=== PATIENT | male | born 1945 | race Caucasian/White ===

== ENCOUNTER 2022-11-18 09:50 | Observation (INO) ==
--- NOTE | 2022-10-18 11:34 | PAT Medication Instructions ---
Medication Instructions Date of Service October 18, 2022 Home Medications Medication Instructions Recorded furosemide 40 mg tablet 40 mg PO DAILY PRN edema #30 tabs 02/11/18 potassium chloride 20 mEq 20 meq PO DAILY PRN take with 02/11/18 tablet,extended release furosemide #30 tabs nebulizers #1 ea 02/24/21 Oxygen Home #1 ea 03/29/21 oxycodone 5 mg tablet 5 mg PO Q6H PRN pain #20 tabs 05/20/22 ascorbic acid (vitamin C) 500 mg capsule,extended release (Vitamin C) 500 mg PO QAM garlic 1,000 mg capsule 1,000 mg PO QAM glucosamine sulfate 1,000 mg capsule 1,000 mg PO BID pravastatin 40 mg tablet 40 mg PO HS selenium 200 mcg capsule 200 mcg PO QAM trazodone 50 mg tablet 50 mg PO HS verapamil 240 mg tablet,extended release 120 mg PO Q12H furosemide 40 mg tablet 40 mg PO DAILY PRN potassium chloride 20 mEq tablet,extended release 20 meq PO DAILY PRN aspirin 81 mg tablet,delayed release (Aspir-) 81 mg PO QPM triamcinolone acetonide 0.1 % topical cream 1 appln topical DAILY PRN ibuprofen 200 mg tablet (Advil) 400 mg PO QAM psyllium [Metamucil (sugar)] 1 dose PO QAM oxycodone 5 mg tablet 5 mg PO Q6H PRN melatonin 5 mg tablet 5 mg PO HS PRN baclofen 10 mg tablet 10 mg PO BID cholecalciferol (vitamin D3) 25 mcg (1,000 unit) tablet (Vitamin D3) 25 mcg PO BID escitalopram oxalate 20 mg tablet 20 mg PO HS fluticasone fur. 200 mcg-umeclid 62.5 mcg-vilant 25 mcg inhalat.powder (Trelegy Ellipta) 1 inh inhalation QAM ipratropium 0.5 mg-albuterol 3 mg (2.5 mg base)/3 mL nebulization soln 3 ml inhalation Q4H PRN omeprazole 20 mg tablet,delayed release 20 mg PO QPM tamsulosin 0.4 mg capsule 0.4 mg PO HS ASK your surgeon for instructions ibuprofen 200 mg tablet (Advil) 400 mg PO QAM STOP taking 2 weeks before surgery (or as soon as possible if surgery is within 2 weeks) garlic 1,000 mg capsule 1,000 mg PO QAM glucosamine sulfate 1,000 mg capsule 1,000 mg PO BID selenium 200 mcg capsule 200 mcg PO QAM STOP taking 24 hours before surgery triamcinolone acetonide 0.1 % topical cream 1 appln topical DAILY PRN DO NOT take the morning of surgery ascorbic acid (vitamin C) 500 mg capsule,extended release (Vitamin C) 500 mg PO QAM furosemide 40 mg tablet 40 mg PO DAILY PRN potassium chloride 20 mEq tablet,extended release 20 meq PO DAILY PRN psyllium [Metamucil (sugar)] 1 dose PO QAM baclofen 10 mg tablet 10 mg PO BID cholecalciferol (vitamin D3) 25 mcg (1,000 unit) tablet (Vitamin D3) 25 mcg PO BID Take morning of surgery With a small sip of water, OTHERWISE NOTHING TO EAT OR DRINK AFTER MIDNIGHT: verapamil 240 mg tablet,extended release 120 mg PO Q12H oxycodone 5 mg tablet 5 mg PO Q6H PRN(if needed) fluticasone fur. 200 mcg-umeclid 62.5 mcg-vilant 25 mcg inhalat.powder (Trelegy Ellipta) 1 inh inhalation QAM ipratropium 0.5 mg-albuterol 3 mg (2.5 mg base)/3 mL nebulization soln 3 ml inhalation Q4H PRN(if needed) Take evening before surgery pravastatin 40 mg tablet 40 mg PO HS trazodone 50 mg tablet 50 mg PO HS verapamil 240 mg tablet,extended release 120 mg PO Q12H aspirin 81 mg tablet,delayed release (Aspir-) 81 mg PO QPM (unless directed otherwise by surgeon) oxycodone 5 mg tablet 5 mg PO Q6H PRN(if needed) melatonin 5 mg tablet 5 mg PO HS PRN(if needed) baclofen 10 mg tablet 10 mg PO BID cholecalciferol (vitamin D3) 25 mcg (1,000 unit) tablet (Vitamin D3) 25 mcg PO BID escitalopram oxalate 20 mg tablet 20 mg PO HS ipratropium 0.5 mg-albuterol 3 mg (2.5 mg base)/3 mL nebulization soln 3 ml inhalation Q4H PRN(if needed) omeprazole 20 mg tablet,delayed release 20 mg PO QPM tamsulosin 0.4 mg capsule 0.4 mg PO HS Other Notes If you have any questions please call us at [phone] or [phone] or [phone] or [phone]
--- NOTE | 2022-10-25 12:54 | Anesthesiology Consultation ---
Date of Service October 25, 2022 Assessment & Plan (1) Encounter for pre-operative examination: Chart Review Chart Review: Acceptable Risk for Surgery and Patient seen in Pre Admission Testing - Due to PMH and age- patient is NOT an OPJ candidate (scheduled as 23 hr obs) Per PAT appt on 10/25/22, patient denies any recent travel or large group activities. Pt is vaccinated for Covid. Will leave to surgeon's discretion if preop Covid testing needed. Educated on importance of using Covid precautions one week prior to surgery Pt seen by pulm 09/08/22= Patient with history of COPD/asthma. [id number] smoking historyquit 3 years ago. History of lung cancer. Sleep apnea/atrial tachycardiapresenting for follow-up evaluation. Patient is undergoing preoperative clearance for knee replacement surgery. Latest pulmonary function testing showing FEF1 1.9 L at 69% of predicted. Patient denies recent hospitalization, emergency room visits or urgent care visits. Patient is cleared for surgical intervention/TKR, with moderate likelihood for perioperative cardiopulmonary complications. Benefit for surgery outweighs the inherent risk at this point. Postoperative pulmonary medicine consultation is recommended. (Surgeon's office made aware) Robotic right VATS, right lower lobectomy 01/31/18= Done under [facility] with Grade 2 view with Naidu #2. Fiberoptic awake placement. Endobronchial tube. MAC 3 x 1. MAC 4 x 1. Naidu 2 x 2 Teaching & Discussion Pre-Anesthesia Teaching/Discussion Notes: Instructed NPO after midnight before surgery,except medications with 15 cc of water. Medication instructions provided according to the PAT guidelines. History Surgery Operation Date: 11/18/22 09:20 Proposed Procedures p Right Total Knee Arthroplasty - Pastor Lisa, Height/Weight Height: 5 ft 8 in Weight: 116.6 kg Allergies Allergy/AdvReac Type Severity Reaction Status Date / Time No Known Allergies Allergy Mild Verified 10/13/22 14:36 Medications Home Medications Medication Instructions Recorded Confirmed Last Taken ascorbic acid (vitamin C) 500 mg 500 mg PO QAM 01/26/18 10/13/22 02/06/18 capsule,extended release (Vitamin C) garlic 1,000 mg capsule 1,000 mg PO QAM 01/26/18 10/13/22 02/06/18 glucosamine sulfate 1,000 mg 1,000 mg PO BID 01/26/18 10/13/2202/06/18 capsule pravastatin 40 mg tablet 40 mg PO HS 01/26/18 10/13/22 02/06/18 selenium 200 mcg capsule 200 mcg PO QAM 01/26/18 10/13/22 02/06/18 trazodone 50 mg tablet 50 mg PO HS 01/26/18 10/13/22 01/30/18 22:00 verapamil 240 mg tablet,extended 120 mg PO Q12H 01/26/18 10/13/22 02/06/18 release furosemide 40 mg tablet 40 mg PO DAILY PRN edema #30 tabs 02/11/18 10/13/22 Unknown potassium chloride 20 mEq 20 meq PO DAILY PRN take with 02/11/18 10/13/22 Unknown tablet,extended release furosemide #30 tabs aspirin 81 mg tablet,delayed 81 mg PO QPM 03/19/18 10/13/22 Unknown release (Aspir-) triamcinolone acetonide 0.1 % 1 appln topical DAILY PRN flare 10/15/19 10/13/22 Unknown topical cream ibuprofen 200 mg tablet (Advil) 400 mg PO QAM 12/25/20 10/13/22 Unknown nebulizers #1 ea 02/24/21 10/11/22 Unknown Oxygen Home #1 ea 03/29/21 10/11/22 Unknown psyllium [Metamucil (sugar)] 1 dose PO QAM 11/05/21 10/13/22 Unknown oxycodone 5 mg tablet 5 mg PO Q6H PRN pain #20 tabs 05/20/22 10/13/22 Unknown melatonin 5 mg tablet 5 mg PO HS PRN Sleep 10/11/22 10/13/22 Unknown baclofen 10 mg tablet 10 mg PO BID 10/13/22 10/13/22 Unknown cholecalciferol (vitamin D3) 25 25 mcg PO BID 10/13/22 10/13/22 Unknown mcg (1,000 unit) tablet (Vitamin D3) escitalopram oxalate 20 mg tablet 20 mg PO HS 10/13/22 10/13/22 Unknown fluticasone fur. 200 mcg-umeclid 1 inh inhalation QAM 10/13/22 10/13/22 Unknown 62.5 mcg-vilant 25 mcg inhalat.powder (Trelegy Ellipta) ipratropium 0.5 mg-albuterol 3 mg 3 ml inhalation Q4H PRN sob 10/13/22 10/13/22 Unknown (2.5 mg base)/3 mL nebulization soln omeprazole 20 mg tablet,delayed 20 mg PO QPM 10/13/22 10/13/22 Unknown release tamsulosin 0.4 mg capsule 0.4 mg PO HS 10/13/22 10/13/22 Unknown Past Medical History Medical History ASCVD (arteriosclerotic cardiovascular disease) On ASA per PCP records COPD (chronic obstructive pulmonary disease) Breathing stable at [facility] appt 10/25/22- symptoms fluctuate (possibly weather dependent) Depression GERD (gastroesophageal reflux disease) Well controlled and stable with Omeprazole and Tums History of lung cancer dx'd 2017. s/p right lobectomy no chemo/XRT- stable History of typhoid fever at age 9 Hyperlipidemia Hypertension Insomnia On home O2 2 lpm qHS. Paroxysmal atrial tachycardia with intermittent PVCs- takes Verapamil Prediabetes Hgb A1C 6.1 on 09/21/22 PVD (peripheral vascular disease) Sleep apnea recently dx'd. waiting on device. Spinal stenosis Exercise / Class Metabolic Activity III < 4 Walking/Shop/Light housework (no chest pain, mild SOB (occ) with short distance, flat surface ambulation ) Past Family History Family History Mother , age 84 of lung cancer Lung cancer Father , age 79 of heart disease Heart disease COPD (chronic obstructive pulmonary disease) Other Diabetes Stroke Past Surgical History Surgical History H/O vasectomy History of lobectomy of lung RLL History of tonsillectomy Hx of cataract surgery BL Hx of colonoscopy Past Anesthesia History No Hx of Anesthesia Complications and No Family Hx of Anesthesia Complications History of PONV No Hx of PONV and No Hx of Motion Sickness Social History Smoking Status: Former smoker tobacco type: cigarettes Do You Dip or Chew Tobacco: No Smoking End Date: 3.5 years ago Hx Alcohol Use: Yes Alcohol type: hard liquor alcohol intake frequency: 0-2 drinks per day Alcohol Intake Frequency Comment: 2 drinks per night Hx Substance Use: No substance use type: does not use Review of Systems Patient denies chest pain, shortness of breath at rest, cough, wheezing, palpitations. No hx of seizures, stroke, NV. No hx of blood clots or blood transfusions Physical Exam Vital Signs VITALS BP 113/76 P 66 TEMP 97.7 SP02 95% on RA RESP 16 Constitutional no acute distress ENMT Mouth: no TMJ clicking Thyromental Distance: > or= 3.5 Finger Breadths (4.0) Mallampati Class: III Crowns to side teeth and molars Neck + limited neck extension (significant ) Respiratory normal respiratory effort; no respiratory distress Auscultation: lungs clear to auscultation bilaterally and + diminished lung sounds (mildly throughout ); no wheezes Cardiovascular Rate/Rhythm: regular rate and regular rhythm Heart Sounds: no murmur Vessels: no carotid bruit Musculoskeletal Spine: + pain with cervical ROM Extremities: extremities normal to inspection Psychiatric Orientation: alert Lab Results Anesthesia Preop Results Results Anesthesia Widget: WBC 8.93 K/ul (4.8-10.8) 10/25/22 Hgb 14.7 g/dl (14.0-18.0) 10/25/22 Hct 42.3 % (42.0-52.0) 10/25/22 Plt 175 K/uL (130-400) 10/25/22 Na 139 mmol/L (136-145) 10/25/22 K 4.1 mmol/L (3.5-5.1) 10/25/22 Cl 105 mmol/L (98-107) 10/25/22 CO2 27 mmol/L (21-32) 10/25/22 BUN 24 mg/dl (6-23) H 10/25/22 Creat 0.84 mg/dl (0.6-1.4) 10/25/22 Glucose Level 106 mg/dl (70-99(Fasting)) H 10/25/22 PT 10.5 Seconds (9.0-12.0) 10/25/22 PTT 24.3 Seconds (21.0-31.0) 10/25/22 INR 1.0 (0.9-1.1) 10/25/22 Blood Type A Negative 10/25/22 Antibody Screen NEGATIVE 10/25/22 Testing Electrocardiogram Date: 10/25/22 SR with PACs at 70bpm Otherwise normal EKG per cardio Chest X-Ray Date: 10/25/22 FINDINGS: There is underlying emphysema. Lung volumes are normal. There is no consolidation to suggest pneumonia. Linear right basilar densities favor atelectasis. There is no pneumothorax or pleural effusion. Mild cardiomegaly is unchanged. Mediastinal contours are normal. There is no evidence for pulmonary edema. IMPRESSION: No acute cardiopulmonary findings. No change in appearance of the chest. Stress Test Date: 07/28/20 Type: nuclear Gated SPECT imaging reveals normal myocardial thickening and wall motion LVEF was calculated at 64% COVID-19 Risk Screen Screening Information COVID-19 Screen Date: 10/25/22 Exposure 21 Days Family/Household +COVID Last 21 Days: No Exposure 10 Days Any COVID Exposure Last 10 Days: No Symptoms Last 10 Days Experienced COVID Sx Last 10 Days: No + COVID 0-90 Days COVID + in Last 0-90 Days: No Risk Plan COVID Risk Plan: No Risk Identified Patient Education COVID Preop Screening Education Complete: Yes
[~2022-11-18 09:50] MED LIST: ACETAMINOPHEN 500 MG TAB PO SCH; BUPIVACAINE 0.5 % 5 MG/1 ML PF 10ML VIAL ONE; FAMOTIDINE 20 MG TAB PO SCH; GABAPENTIN 300 MG CAP PO SCH; LR 500ML BOLUS, THEN 15ML/HR IV SCH; LR 60ML/HR IV SCH; ORTHO JOINT MIX INFIL SCH; ROPIVACAINE 0.5% 5 MG/ML 30 ML VIAL ONE; TRANEXAMIC ACID 1,000 MG **IV Intra-op IV SCH; TRANEXAMIC ACID 1,000 MG **IV Pre-op IV SCH; ceFAZolin 2000MG 2,000 MG/15 ML SYR IV SCH; dexAMETHasone 4 MG TAB PO SCH
[2022-11-18] MEDS ORDERED: PROPOFOL IV EMULSION 10 MG/ML 20 ML VIAL IV ONE ×2 (11:32→13:42)
[2022-11-18] MEDS ORDERED: LIDOCAINE 2% 2 ML VIAL/AMP(20MG/ML) INFIL ONE (11:32)
[2022-11-18] MEDS ORDERED: MIDAZOLAM HCL 1 MG/ML 2ML VIAL ONE ×2 (11:32→12:26)
--- NOTE | 2022-11-18 11:45 | History & Physical Bridge Note ---
Date of Service November 18, 2022 History & Physical Bridge Note I have examined the patient, reviewed the History & Physical and in the interval since the performance of the History & Physical I have noted the following changes of clinical significance: no changes noted
[2022-11-18] MEDS ORDERED: ORTHO JOINT ANESTHETIC ONE (12:37)
--- NOTE | 2022-11-18 14:06 | Operative Report ---
PG Post Operative Report Pre & Post Diagnosis Operation Date: 11/18/22 12:10 Pre-Op Diagnosis: Right Knee Degenerative Joint Disease Post-Op Diagnosis: Right Knee Degenerative Joint Disease I identified the patient and participated in the time-out.: Yes Procedure Operation Date: 11/18/22 12:10 Actual Procedures p Right Total Knee Arthroplasty(Right) - Pastor Lisa DO Surgeon Pastor Lisa DO Phosphoric Acid Operator Pastor Wynn PA-C Estimated Blood Loss 30 Findings Consistent with Post-Op Diagnosis Specimens Right femoral and tibial bone Description of Procedure Implants used: I used a Flora Persona total knee arthroplasty system with a size 11 standard PS femur, G tibia with a 30 mm stem extension, 34 oval patella, and a size 12 CPS polyethylene bearing. All components were cemented in place with Biomet cement. Jay arrived [facility] for the above procedure. He was seen in the preoperative holding area and the operative extremity was identified and signed. He was given a preoperative antibiotic, TXA, a spinal anesthetic and an adductor nerve block. He was taken back to the operating room and laid on the table in supine position. He was given basic sedation. The operative knee was then prepped and draped in sterile fashion. A timeout was done, and the patient and the operative extremity was properly identified. A midline incision was made directly over the patella. Dissection was taken down to the extensor mechanism. A midvastus arthrotomy was used. The medial retinaculum was released and the fat pad was mostly excised. The knee was flexed and the ACL, PCL, and meniscus were removed. A drill was sent down the center of the femoral canal followed by an intramedullary taty. Off that taty a distal femoral cutting block was placed. 9 mm was resected off the distal femur at 5 of valgus. A posterior referencing AP sizing guide was then placed on the distal femur. The femur measured to be a size 11. 2 drill holes were placed in 3 of external rotation. A 4-in-1 cutting block was then impacted into place. Anterior, posterior, and chamfer cuts were then made. The proximal tibia was then exposed. An external tibial alignment guide was placed. A tibial cut guide was then anchored in place and the proximal tibia was then resected. The posterior aspect of the knee was then opened up and any additional meniscus fragments and osteophytes were removed. The tibia measured to be a size G. The tibial plate was then placed in the appropriate rotation and the tibia was drilled and punched. Trial components were then placed. I used a size 12 CPS polyethylene insert. The knee was brought through a full range of motion and felt to be stable. The peg holes for the femoral component were then drilled. The patella was then everted and 9 mm was resected off the posterior aspect of the patella. The patella measured to be a size 34 oval. 3 peg holes were then drilled. A trial patella was placed. The knee was once again brought through a full range of motion and felt to be stable. Trial components were then removed. The surrounding soft tissues were injected with 100 cc of an orthopedic pain control cocktail. All components were then cemented into place with Biomet cement. The final polyethylene insert was then snapped into place. Once cement was dry the tourniquet was deflated. Hemostasis was obtained. A dilute betadyne lavage was then done for 3 minutes. The joint was then irrigated with normal saline solution. The midvastus a rthrotomy was then closed with #1 Vicryl suture. The skin was closed with 2-0 Vicryl, 3-0V lock suture, and ras. A soft compressive dressing was placed. He was then transferred to a hospital bed and taken to the postanesthesia care unit in stable condition. He tolerated the procedure well. Pastor Wynn PA-C, was present for the entire procedure. He was critical for patient positioning, prepping, draping, retraction exposure, wound closure and application of sterile dressing. I attest to the content of the Intraoperative Record and any orders documented therein. Any exceptions are noted below.
[2022-11-18] MEDS ORDERED: PHENYLEPHRINE 100MCG/ML 5ML SYR ONE (14:08)
[2022-11-18] MEDS ORDERED: ePHEDrine sulfate 50 MG/ML AMP IV PRN (14:14)
[2022-11-18] MEDS ORDERED: ATROPINE SULFATE 0.1 MG/ML 10ML SYR IV PRN (14:14)
[2022-11-18] MEDS ORDERED: fentaNYL citrate PF 100 MCG/2 ML VIAL IV PRN (14:14)
--- NOTE | 2022-11-18 14:53 | XRay Report ---
TWO VIEWS RIGHT KNEE CLINICAL HISTORY: Postoperative examination. FINDINGS: AP and crosstable lateral portable views of the right knee are obtained. A right knee arthr oplasty is in near anatomic alignment. There has been undersurface remodeling of the patella. No acut e fracture is seen. There are expected postoperative changes around the knee including skin clips, so ft tissue edema, and subcutaneous gas. IMPRESSION: Expected postoperative changes status post right knee arthroplasty. No acute fracture is seen. ACT 112: Negative or not required by law. Electronically signed by: Baldemar Deleon M.D. 11/18/2022 2:52 PM
--- NOTE | 2022-11-18 15:36 | Anesthesiology Progress Note ---
Date of Service November 18, 2022 Anesthesia Post Procedure Vital Signs Vital Signs: Temp Pulse Resp BP Pulse Ox O2 Del Method O2 Flow Rate 11/18/22 15:30 70 18 125/79 95 Nasal Cannula 3 11/18/22 15:20 72 18 119/69 95 Nasal Cannula 3 11/18/22 15:10 72 18 124/72 96 Nasal Cannula 3 11/18/22 15:00 75 18 117/70 96 Nasal Cannula 3 11/18/22 14:50 82 16 119/74 93 Nasal Cannula 3 11/18/22 14:40 72 18 124/77 96 Oxymask 7 11/18/22 14:30 36.5 C 94 H 18 106/67 96 Oxymask 7 11/18/22 10:33 36.4 C L 68 22 168/99 H 94 Room Air Transfer of Care Handoff Completed per policy Notes Mental Status: alert / awake / arousable and participated in evaluation Patient Amnestic to Procedure: Yes Nausea / Vomiting: adequately controlled Pain: adequately controlled Airway Patency, RR, SpO2: stable & adequate BP & HR: stable & adequate Hydration State: stable & adequate Anesthetic Complications: no major complications apparent
[2022-11-18] MEDS ORDERED: METOCLOPRAMIDE HCL INJ 5 MG/ML 2 ML VIAL IV PRN (16:01)
[2022-11-18] MEDS ORDERED: MAGNESIUM HYDROXIDE SUSP 30 ML UDC PO PRN (16:01)
[2022-11-18] MEDS ORDERED: NALOXONE HCL 0.4 MG/1 ML VIAL/CARP IV PRN (16:01)
[2022-11-18] MEDS ORDERED: ONDANSETRON INJ 2 MG/ML 2 ML VIAL IV PRN (16:01)
[2022-11-18] MEDS ORDERED: bisacodyL 10 MG SUPP PR PRN (16:01)
[2022-11-18] MEDS ORDERED: ALBUT/IPRATROP 3MG/0.5MG NEB 3 ML VIAL INH PRN (16:01)
[2022-11-18] MEDS ORDERED: TRIAMCINOLONE ACET 0.1% CR 15 GM TUBE TOP PRN (16:01)
[2022-11-18] MEDS ORDERED: POTASSIUM CHLORIDE CRTAB 20 MEQ TABCR PO PRN (16:01)
[2022-11-18] MEDS ORDERED: FUROSEMIDE 40 MG TAB PO PRN (16:01)
[2022-11-18] MEDS ORDERED: SODIUM CHLORIDE 0.9% 1000ML 1,000 ML IV SCH (16:01)
[2022-11-18] MEDS ORDERED: HYDROmorphone INJ 0.5 MG/0.5 ML SYR IV PRN (16:01)
[2022-11-18] MEDS: KETOROLAC TROMETHAMINE 15 MG/ML VIAL IV SCH ×2 (17:10→22:20)
[2022-11-18] MEDS: VERAPAMIL HCL 120 MG TABCR PO SCH (17:35)
[2022-11-18] MEDS: ceFAZolin 2000MG 2,000 MG/15 ML SYR IV SCH (19:37)
[2022-11-18] MEDS: TAMSULOSIN HCL 0.4 MG CAP PO SCH (21:46)
[2022-11-18] MEDS: PRAVASTATIN SOD 40 MG TAB PO SCH (21:46)
[2022-11-18] MEDS: DOCUSATE SODIUM 100 MG CAP PO SCH (21:46)
[2022-11-18] MEDS: BACLOFEN 10 MG TAB PO SCH (21:46)
[2022-11-18] MEDS: ASPIRIN 81 MG ECTAB PO SCH (21:46)
[2022-11-18] MEDS: SENNA 8.6 MG TAB PO SCH (21:46)
[2022-11-18] MEDS: ACETAMINOPHEN 500 MG TAB PO SCH (21:46)
[2022-11-18] MEDS: ESCITALOPRAM OXALATE 20 MG TAB PO SCH (21:47)
[2022-11-18] MEDS: MELATONIN 3 MG TAB PO PRN (21:47)
[2022-11-18] MEDS: traZODone HCL 50 MG TAB PO SCH (21:47)
[2022-11-18] MEDS: PANTOprazole 40 MG TAB PO SCH (21:49)
[2022-11-19] MEDS: ceFAZolin 2000MG 2,000 MG/15 ML SYR IV SCH (04:03)
[2022-11-19] MEDS: VERAPAMIL HCL 120 MG TABCR PO SCH ×2 (05:14→16:43)
[2022-11-19] MEDS: KETOROLAC TROMETHAMINE 15 MG/ML VIAL IV SCH ×4 (05:14→23:03)
[2022-11-19] MEDS: ACETAMINOPHEN 500 MG TAB PO SCH ×3 (05:14→21:42)
--- NOTE | 2022-11-19 07:08 | Electrocardiogram Report ---
Test Reason : Blood Pressure : / mmHG Vent. Rate : 084 BPM Atrial Rate : 271 BPM P-R Int : 000 ms QRS Dur : 078 ms QT Int : 370 ms P-R-T Axes : 000 -30 -26 degrees QTc Int : 437 ms Atrial flutter with variable A-V block Left axis deviation Nonspecific ST and T wave abnormality Abnormal ECG When compared with ECG of 25-OCT-2022 13:19, Atrial flutter has replaced Sinus rhythm QRS axis Shifted left Confirmed by René Raymundo ([id number]) on 11/19/2022 7:08:18 AM Referred By: Pastor Lisa Confirmed By:Cipriano Raymundo
[2022-11-19] MEDS: oxyCODONE HCL IR 5 MG TAB (IMMEDIATE RELEASE) PO PRN ×2 (07:14→21:41)
[2022-11-19] MEDS: FLUTICASONE FUROATE 200MCG 14 PUFFS/INHALER INH SCH (07:17)
[2022-11-19] MEDS: UMECLIDINIUM/VILANTEROL 62.5/25MCG 7 PUFFS/INHALER INH SCH (07:19)
[2022-11-19] MEDS ORDERED: dexAMETHasone 4 MG TAB PO SCH (08:00)
[2022-11-19] MEDS: DOCUSATE SODIUM 100 MG CAP PO SCH ×2 (08:18→20:14)
[2022-11-19] MEDS: MULTIVITAMIN TAB PO SCH (08:19)
[2022-11-19] MEDS: ASPIRIN 81 MG ECTAB PO SCH ×2 (08:19→20:17)
[2022-11-19] MEDS: BACLOFEN 10 MG TAB PO SCH ×2 (08:19→20:18)
[2022-11-19] MEDS: PSYLLIUM or GUAR GUM FIBER POWDER PACKET PO SCH (08:20)
--- NOTE | 2022-11-19 08:32 | Orthopedic Progress Note ---
Date of Service November 19, 2022 Assessment & Plan (1) Status post right knee replacement: Overall he is doing okay. He was a little dizzy when he got up to ambulate today. He is a little bit tentative about being discharged home today. I think it is reasonable to see how he does with physical therapy. His dressing can be changed after physical therapy today. If he does really well the nursing staff can discharge him to home later today, otherwise, we will keep him until tomorrow. He is on aspirin for DVT prophylaxis. Avinash Vance was seen and examined at bedside this morning. Overall is doing fairly well. Is not in too much pain in the right knee. He has been up and ambulating to the bathroom. He feels a little dizzy when he gets up. He had difficulty sleeping last night. He has no other complaints.. Review of Systems All systems reviewed & are unremarkable except as noted in HPI & below. Physical Exam On physical examination of the left knee, the dressing is clean and dry. His leg is out full extension. He has active dorsiflexion plantarflexion of his left ankle. Sensations intact throughout.. Results & Data Results & Data Laboratory Results . Diagnostic Findings Postoperative x-rays of the left knee show the prosthesis to be in anatomic alignment without any evidence of fracture, dislocation, or loosening.. PG Care Time/CCT Total # of Minutes Spent Total Time Spent with Patient: Total time spent is greater than 50% in coordination of care (as documented) at patient's floor/unit and/or counseling patient: Coding Level of Care Code 36115 Post Operative Follow-Up Diagnoses Status post right knee replacement Z96.651
[2022-11-19] MEDS ORDERED: NON-FORMULARY MEDICATION (Fluticasone-Umeclidin-Vilanter [Trelegy Ellipta] 200-62.5-25 mcg INH SCH (09:00)
[2022-11-19] MEDS: SENNA 8.6 MG TAB PO SCH (20:14)
[2022-11-19] MEDS: TAMSULOSIN HCL 0.4 MG CAP PO SCH (20:17)
[2022-11-19] MEDS: traZODone HCL 50 MG TAB PO SCH (20:17)
[2022-11-19] MEDS: PRAVASTATIN SOD 40 MG TAB PO SCH (20:17)
[2022-11-19] MEDS: ESCITALOPRAM OXALATE 20 MG TAB PO SCH (20:18)
[2022-11-19] MEDS: PANTOprazole 40 MG TAB PO SCH (20:18)
[2022-11-19] MEDS: MELATONIN 3 MG TAB PO PRN (21:41)
[2022-11-20] MEDS: KETOROLAC TROMETHAMINE 15 MG/ML VIAL IV SCH ×2 (05:46→10:20)
[2022-11-20] MEDS: VERAPAMIL HCL 120 MG TABCR PO SCH (05:46)
[2022-11-20] MEDS: ACETAMINOPHEN 500 MG TAB PO SCH (05:46)
[2022-11-20] MEDS: DOCUSATE SODIUM 100 MG CAP PO SCH (07:12)
[2022-11-20] MEDS: PSYLLIUM or GUAR GUM FIBER POWDER PACKET PO SCH (07:13)
[2022-11-20] MEDS: FLUTICASONE FUROATE 200MCG 14 PUFFS/INHALER INH SCH (08:10)
[2022-11-20] MEDS: UMECLIDINIUM/VILANTEROL 62.5/25MCG 7 PUFFS/INHALER INH SCH (08:10)
[2022-11-20] MEDS: BACLOFEN 10 MG TAB PO SCH (08:11)
[2022-11-20] MEDS: ASPIRIN 81 MG ECTAB PO SCH (08:11)
[2022-11-20] MEDS: MULTIVITAMIN TAB PO SCH (08:11)
--- NOTE | 2022-11-29 07:04 | Discharge Summary ---
Date of Service November 29, 2022 Principal Diagnosis Same as "Discharge Diagnosis" noted below under Discharge Instructions. Discharge Exam On physical examination of the left knee, the dressing is clean and dry. His leg is out full extension. He has active dorsiflexion plantarflexion of his left ankle. Sensations intact throughout.. Discharge Data Procedures Performed Operation Date: 11/18/22 12:10 Actual Procedures p Right Total Knee Arthroplasty(Right) - Pastor Lisa DO Ordered Studies 11/18/22 05:00 US - OR guided needle placemen Routine Hospital Course (1) Status post right knee replacement: On November 18, 2022 Jay arrived at [facility] and underwent a right knee replacement without complication. Postoperatively he was started on aspirin for DVT prophylaxis and transferred to the general orthopedic floors. His hospital course was uneventful. On postop day #1, his vital signs were stable and his pain was well controlled. He participated fairly well with physical therapy doing ambulation and range of motion exercises. He was having a little bit of pain. He did not feel safe returning home. He decided to stay an extra night. On postop day #2 I called into the room early in the morning. He was feeling well. I reviewed his chart and his vital signs look stable. He was then discharged home. He will follow-up with orthopedics in 2 weeks. PG Care Time/CCT Total # of Minutes Spent Total Time Spent with Patient: Total time spent is greater than 50% in coordination of care (as documented) at patient's floor/unit and/or counseling patient: Discharge Plan Discharge Items Patient Disposition: Home - Home Health Services Reason For Visit: Right Knee Degenerative Joint Disease Discharge Diagnosis: Right knee replacement Activity: Per Instructions section Non-emergency contact: Surgeon Call non-emergency contact if: your wound has increased redness and your wound has increased drainage Follow-up/Referrals: Alvaro Ruiz DO [Primary Care Provider] - Diet: Regular Addtl Attending Provider Instructions: Activity and Therapy Recommendations: * If you are using [facility] then therapy will be provided at your home until they feel you have accomplished all of your goals. * If you are using [facility] then Physical Therapy will be provided until they feel you are ready to start Outpatient Physical Therapy. * If you are not using home therapy then Outpatient Physical Therapy should start about 3-5 days from your day of surgery. Therapy will last about 6-10 weeks * It is important not to put a pillow under your knee when you are relaxing or sleeping. It is just as important to make sure you are getting your knee perfectly straight as it is to regain your knee bend. * You were shown a series of exercises in the hospital. Do these exercises three times each day including the exercises you were shown in physical therapy. * Get up and walk several times each day. For the first four weeks, try not to stand or walk for more than one hour at a time. If you do stand or walk for more than one hour, you will not hurt anything, but your leg will likely swell. * As you feel comfortable, you may change from the walker or crutches to a cane and then to independent walking. Medications: * Narcotic You will likely be sent home from the hospital with a prescription for the narcotic pain medication that worked best throughout your stay. * Aspirin Most patients will be required to take Aspirin 81mg twice a day for 6 weeks after surgery. This is obtained [id number] and a prescription is not necessary. * Other medications may be prescribed for specific circumstances. If you have any questions, please call the office at . * Resume previous home medications unless otherwise instructed TEDs/Elastic Stockings: The white elastic stockings help limit swelling and prevent blood clots from forming in your legs.~ The more you wear them, the more they work. Wear them for six weeks. Dressing Care: The dressing can be changed after physical therapy on postop day #1. Daily dry dressing changes for a few days, especially if the incision is still draining some. If the incision is not draining then you may leave the ras open to air. If there is a little bit of drainage or if the ras are getting stuck on your clothing then cover the incision with a dry dressing. The ras will be removed at your 2 week follow-up appointment. Showering: You may shower 5 days from the day of surgery as long as the incision is no longer draining. You may shower with the ras exposed. Let soapy water run over the ras and pat them dry. Do not scrub or soak the incision. Things To Watch For: * Drainage from the incision site that occurs more than one week after your surgery. * Increased redness at the incision site. * Fever above 102 degrees Fahrenheit. * Unusual chest pain or shortness of breath. * Call [facility] at with any of the above problems Follow-Up Visit: Follow-up with Dr. Lisa's PA (Pastor Wynn) 2-3 weeks after your day of surgery . He will remove your ras and answer any questions. If you have any additional questions or concerns, Dr Lisa is usually in the office at the same time and will be available An appointment was probably scheduled when you signed-up for surgery in the office. If you have any questions call Office Instructions: More detailed instructions as well as Frequently Asked Questions were provided in a folder by our office when you signed-up for surgery. Please review these instructions when you get home. If you have any further questions or concerns, please feel free to call the office at [phone] Pending Studies at Discharge: No Stand-Alone Forms: [facility] Medications and DC Order Prescriptions: New aspirin 81 mg Tablet,Delayed Release (Dr/Ec) 81 mg PO BID 42 Days Qty: 84 0RF oxycodone-acetaminophen 5-325 mg tablet 1 tab PO Q6H PRN (Reason: pain) Qty: 30 0RF Continued (DME) Oxygen Home Liters Per Minute See Rx Instructions .MEDSUPPLY Qty: 1 0RF Rx Instructions: Portable concentrator. Oxygen at 2 l/m via n/c with ambulation. Lifetime need. (DME) nebulizers Mis See Rx Instructions .MEDSUPPLY Qty: 1 0RF Rx Instructions: Use 4 times daily or as directed with nebulizer solution. Lifetime need. melatonin 5 mg tablet 5 mg PO HS PRN (Reason: Sleep) triamcinolone acetonide [Triderm] 0.1 % cream 1 appln topical DAILY PRN (Reason: flare) psyllium [Metamucil (sugar)] 1 dose PO QAM furosemide 40 mg tablet 40 mg PO DAILY PRN (Reason: edema) Qty: 30 1RF potassium chloride 20 mEq tablet extended release 20 meq PO DAILY PRN (Reason: take with furosemide) Qty: 30 1RF trazodone 50 mg Tablet 50 mg PO HS pravastatin 40 mg Tablet 40 mg PO HS garlic 1,000 mg Capsule 1,000 mg PO QAM ascorbic acid (vitamin C) [Vitamin C] 500 mg Capsule, Extended Release 500 mg PO QAM verapamil 240 mg Tablet Extended Release 120 mg PO Q12H Rx Instructions: 1/2 TABLET DOSAGE glucosamine sulfate 1,000 mg Capsule 1,000 mg PO BID selenium 200 mcg Capsule 200 mcg PO QAM ipratropium-albuterol 0.5 mg-3 mg(2.5 mg base)/3 mL Solution For Nebulization 3 ml INHALATION Q4H PRN (Reason: sob) tamsulosin [Flomax] 0.4 mg Capsule 0.4 mg PO HS baclofen 10 mg Tablet 10 mg PO BID cholecalciferol (vitamin D3) [Vitamin D3] 25 mcg (1,000 unit) Tablet 25 mcg PO BID omeprazole 20 mg Tablet,Delayed Release (Dr/Ec) 20 mg PO QPM Trelegy Ellipta 200-62.5-25 mcg blister with device 1 inh inhalation QAM escitalopram oxalate [Lexapro] 20 mg Tablet 20 mg PO HS acetaminophen 500 mg Capsule 500 mg PO Q6H PRN (Reason: Pain) Discontinued aspirin [Aspir-81] 81 mg Tablet,Delayed Release (Dr/Ec) 81 mg PO QPM oxycodone 5 mg tablet 5 mg PO Q6H PRN (Reason: pain) Qty: 20 0RF Admission Data Admit Date/Time: 11/18/22 14:29 Attending Provider: Pastor Lisa Admit Provider: Pastor Lisa Primary Care Provider: Alvaro Ruiz Other Interventions: Discharge Summary Assessment (RN) Last Done: 11/20/22 07:33
== END 2022-11-20 11:15 | disposition home health service (06) ==
LOC: ASU 09:50 → 3E 09:50